=== PATIENT | female | born 1995 | race Caucasian/White ===

== ENCOUNTER 2023-07-24 22:29 | Emergency (ER) | payer MEDICAID ==
[~2023-07-24] VITALS: Ht 157.5 cm; Wt 49.0 kg
[2023-07-24 22:40] VITALS: O2SAT 99
[2023-07-25 01:18] VITALS: BP 117/68; PULSE 96; RESP 18; TEMP 97.8
== END 2023-07-25 01:19 | disposition home or self-care (01) ==
LOC: ER 23:38
DX: M79.89 Other specified soft tissue disorders (principal); D64.9 Anemia, unspecified; F41.9 Anxiety disorder, unspecified; J45.909 Unspecified asthma, uncomplicated; Z88.0 Allergy status to penicillin
CPT/HCPCS: 81025; 99282